=== PATIENT | female | born 1940 | race Caucasian/White ===

== ENCOUNTER 2017-04-10 11:53 | Observation (INO) ==
[2017-04-10 12:55] LABS: Basophils % 0.1 %; Eosinophils # 0.3 K/mcL (0.0-0.6); Eosinophils % 3.7 %; Hematocrit 34.2 % (35.3-44.9); Hemoglobin 10.5 g/dL (11.5-15.4); Immature Granulocytes % 0.4 % (0-4); Lymphocytes # 0.9 K/mcL (0.6-4.6); Lymphocytes % 12.2 %; Mean Corpuscular HGB Conc 30.7 g/dL (31.6-35.5); Mean Corpuscular Hemoglobin 29.2 pg (28.0-33.3); Mean Platelet Volume 9.2 fL (9.4-12.4); Monocytes # 0.7 K/mcL (0.0-1.3); Monocytes % 9.6 %; Neutrophils # 5.6 K/mcL (1.6-8.9); Platelet Count 363 K/mcL (140-400); Red Cell Distribution Width 14.5 % (11.5-14.5)
--- NOTE | 2017-04-10 13:06 | Emergency Department Note ---
Disposition Clinical Impression: Abdominal pain Qualifiers: Abdominal location: lower abdomen, unspecified Qualified Code(s): R10.30 - Lower abdominal pain, unspecified Nausea & vomiting Qualifiers: Vomiting type: unspecified Vomiting Intractability: intractable Qualified Code( s): R11.2 - Nausea with vomiting, unspecified Disposition: Admitted As Inpatient Condition: Good Referrals: NONE,PCP [Primary Care Provider] - [facility] [Outside] Forms: ED Satisfaction Letter, Work/School Release Time of Disposition: 14:19 General Adult HPI - General Chief complaint: ED Abdominal Pain Stated complaint: abdominal pain Time Seen by Provider: 04/10/17 11:56 Source: EMS Limitations: no limitations Nursing Notes Reviewed: Yes Vital Signs Reviewed: Yes - History of Present Illness HPI Narrative: Patient is a 76-year-old female that presents to emergency department with right flank and right lower quadrant pain. She states that this began yesterday morning around 4 AM. This issue at urgent care yesterday and they thought this could possibly be a kidney infection and was given tramadol and an antibiotic. This does not seem to provide any relief for her. She states that she began vomiting this morning. Patient states that her pain starts in the right flank and radiates to the right lower quadrant and groin. She describes as a sharp pain and rates as a 10 out of 10. She states that she is unable to get comfortable. Patient denies any previous history of kidney stone. Pain Scale: 10 - Related Data Allergies Allergy/AdvReac Type Severity Reaction Status Date / Time levofloxacin [From Levaquin] Allergy Difficulty Verified 04/10/17 13:36 Breathing morphine Allergy Difficulty Verified 04/10/17 13:36 Breathing Glqcodw-Vbi-Aha Reductase Allergy Chest Pain Verified 04/10/17 13:36 Inhibitor [Statins] All systems ED: reviewed and negative except as stated. () Respiratory: Reports: cough, dyspnea Gastrointestinal: Reports: abdominal pain, nausea, vomiting. Denies: diarrhea Genitourinary: Denies: urgency, dysuria, frequency Musculoskeletal: Reports: back pain Past Medical History - Past Medical History Medical history: Reports: COPD, GERD, hyperlipidemia Psychiatric history: Reports: no psych history - Social History Smoking Status: Current every day smoker Smokeless Tobacco Status: No Alcohol use: Reports: occasionally Drug use: Reports: none Physical Exam - General Limitations: no limitations General appearance: alert, in no apparent distress - Head Head exam: atraumatic, normocephalic - Eye Eye exam: Present: normal appearance, EOMI - Neck Neck exam: Present: normal inspection, full ROM, trachea midline - Respiratory Respiratory exam: Present: wheezes (Wheezes bilaterally) - Cardiovascular Cardiovascular exam: Present: regular rate, normal rhythm, normal heart sounds, +S1, +S2 - Abdominal Exam Abdominal exam: Present: soft, tenderness, normal bowel sounds. Absent: rebound Abdominal tenderness: Present: RLQ, suprapubic, moderate - Back Exam Back exam: Present: normal inspection, full ROM, CVA tenderness (R). Absent: CVA tenderness (L) - Neurological Exam Neurological exam: Present: alert, oriented X3 - Psychiatric Psychiatric exam: Present: normal affect, normal mood - Skin Skin exam: Present: warm, dry, intact Course Vital Signs Temperature 97.8 F 04/10/17 11:54 Pulse Rate 86 04/10/17 11:54 Respiratory Rate 20 04/10/17 11:54 Blood Pressure 207/90 04/10/17 11:54 O2 Sat by Pulse Oximetry 97 04/10/17 11:54 Temperature 97.8 F 04/10/17 11:54 Pulse Rate 86 04/10/17 11:54 Respiratory Rate 20 04/10/17 11:54 Blood Pressure 207/90 04/10/17 11:54 O2 Sat by Pulse Oximetry 97 04/10/17 11:54 Oxygen Delivery Oxygen Delivery Nasal Cannula Medical Decision Making - [facility] Narrative Medical decision making narrative: Due to the patient having right flank and abdominal pain we will order CBC, BMP , lipase, hepatic panel, urinalysis and we will order a CT of the abdomen and pelvis. CT scan of the abdomen and pelvis was negative for any acute intra- abdominal pathology. Urinalysis shows small amount of leuk esterase. Patient was slightly anemic at 10.5. There is no elevation in the patient's white count. Patient states that she has had a previous appendectomy and hysterectomy with bilateral opherectomy. There is no indication to do a pelvic ultrasound at this time due to the patient not having ovaries or uterus. Patient will be given Zofran and ibuprofen for pain. Patient will be given some water for by mouth challenge. The patient did not tolerate by mouth and was not able to take anything by mouth. The patient will need an IV placed and IV antiemetics. The patient will need to be admitted to the hospital for further evaluation and management. [facility] the hospital was negative except for the patient to their service. The patient given to the hospital this time. - Medical Records Medical records reviewed: Yes I reviewed the patient's medical records. - Lab Data Lab results reviewed: Yes I reviewed the patient's lab results. Result diagrams: 04/10/17 12:46 04/10/17 12:46 Lab Results 04/10/17 04/10/17 04/10/17 Range/Units 12:46 12:46 12:46 WBC 7.6 (4.3-11.1) K/mcL RBC 3.60 L (3.82-4.97) M/mcL Hgb 10.5 L (11.5-15.4) g/dL Hct 34.2 L (35.3-44.9) % MCV 95.0 (83.0-100.0) fL MCH 29.2 (28.0-33.3) pg MCHC 30.7 L (31.6-35.5) g/dL RDW 14.5 (11.5-14.5) % Plt Count 363 (140-400) K/mcL MPV 9.2 L (9.4-12.4) fL Immature Gran % 0.4 (0-4) % Seg Neutrophils % 74.0 % Lymphocytes % 12.2 % Monocytes % 9.6 % Eosinophils % 3.7 % Basophils % 0.1 % Neutrophils # 5.6 (1.6-8.9) K/mcL Lymphocytes # 0.9 (0.6-4.6) K/mcL Monocytes # 0.7 (0.0-1.3) K/mcL Eosinophils # 0.3 (0.0-0.6) K/mcL Basophils # 0.0 (0.0-0.2) K/mcL Sodium 136 (136-145) mEq/L Potassium 4.2 (3.5-5.1) mEq/L Chloride 102 (98-107) mEq/L Carbon Dioxide 29 (23-29) mEq/L BUN 11 (8-23) mg/dL Creatinine 0.99 (0.60-1.20) mg/dL Est GFR ( Amer) > 60 (> 60) Est GFR (Non-Af Amer) 54 L (> 60) BUN/Creatinine Ratio 11 (6-26) Glucose 105 (70-105) mg/dL Calculated Osmolality 282 (280-300) Lactic Acid 0.5 (0.5-2.2) mmol/L Calcium 8.6 (8.6-10.3) mg/dL Total Bilirubin 0.2 L (0.3-1.0) mg/dL Direct Bilirubin 0.0 (0.0-0.2) mg/dL Indirect Bilirubin 0.2 (0.0-1.2) mg/dL AST 12 L (13-39) Units/L ALT 9 (7-52) Units/L Alkaline Phosphatase 66 (34-104) Units/L Serum Total Protein 5.9 L (6.4-8.9) g/dL Albumin 3.4 L (3.5-5.7) g/dL Globulin 2.5 (2.4-3.5) g/dL Albumin/Globulin Ratio 1.4 (1.1-2.2) Lipase 13 (11-82) Units/L Urine Color (Yellow) Urine Clarity (Clear) Urine pH (5.0-8.0) pH Units Ur Specific [place] (1.010-1.025) Urine Protein (Neg-Trace) mg/dL Urine Glucose (UA) (Normal) mg/dL Urine Ketones (Negative) mg/dL Urine Blood (Negative) Urine Nitrite (Negative) Urine Bilirubin (Negative) Urine Urobilinogen (Normal) mg/dL Ur Leukocyte Esterase (Negative) Urine Microscopic RBC (0-3) per hpf Urine Microscopic WBC (0-3) per hpf Ur Squamous Epith Cells (None-Few) per lpf Urine Bacteria (None-Few) per hpf Hyaline Casts (None-Few) per lpf Ur Culture Indicated? (NO) 04/10/17 Range/Units 13:10 WBC (4.3-11.1) K/mcL RBC (3.82-4.97) M/mcL Hgb (11.5-15.4) g/dL Hct (35.3-44.9) % MCV (83.0-100.0) fL MCH (28.0-33.3) pg MCHC (31.6-35.5) g/dL RDW (11.5-14.5) % Plt Count (140-400) K/mcL MPV (9.4-12.4) fL Immature Gran % (0-4) % Seg Neutrophils % % Lymphocytes % % Monocytes % % Eosinophils % % Basophils % % Neutrophils # (1.6-8.9) K/mcL Lymphocytes # (0.6-4.6) K/mcL Monocytes # (0.0-1.3) K/mcL Eosinophils # (0.0-0.6) K/mcL Basophils # (0.0-0.2) K/mcL Sodium (136-145) mEq/L Potassium (3.5-5.1) mEq/L Chloride (98-107) mEq/L Carbon Dioxide (23-29) mEq/L BUN (8-23) mg/dL Creatinine (0.60-1.20) mg/dL Est GFR ( Amer) (> 60) Est GFR (Non-Af Amer) (> 60) BUN/Creatinine Ratio (6-26) Glucose (70-105) mg/dL Calculated Osmolality (280-300) Lactic Acid (0.5-2.2) mmol/L Calcium (8.6-10.3) mg/dL Total Bilirubin (0.3-1.0) mg/dL Direct Bilirubin (0.0-0.2) mg/dL Indirect Bilirubin (0.0-1.2) mg/dL AST (13-39) Units/L ALT (7-52) Units/L Alkaline Phosphatase (34-104) Units/L Serum Total Protein (6.4-8.9) g/dL Albumin (3.5-5.7) g/dL Globulin (2.4-3.5) g/dL Albumin/Globulin Ratio (1.1-2.2) Lipase (11-82) Units/L Urine Color Yellow (Yellow) Urine Clarity Clear (Clear) Urine pH 6.5 (5.0-8.0) pH Units Ur Specific [place] 1.021 (1.010-1.025) Urine Protein Negative (Neg-Trace) mg/dL Urine Glucose (UA) Normal (Normal) mg/dL Urine Ketones Negative (Negative) mg/dL Urine Blood Negative (Negative) Urine Nitrite Negative (Negative) Urine Bilirubin Negative (Negative) Urine Urobilinogen Normal (Normal) mg/dL Ur Leukocyte Esterase Small H (Negative) Urine Microscopic RBC 0-3 (0-3) per hpf Urine Microscopic WBC 0-3 (0-3) per hpf Ur Squamous Epith Cells Many H (None-Few) per lpf Urine Bacteria None Seen (None-Few) per hpf Hyaline Casts None Seen (None-Few) per lpf Ur Culture Indicated? NO (NO) - Radiology Data Radiology results reviewed: Yes I reviewed the patient's radiology results. Abdomen/Pelvis CT 04/10/17 13:02 IMPRESSION: 1. No acute intra-abdominal process identified. 2. Moderate atherosclerotic disease. 3. Diverticulosis without evidence for diverticulitis. D/ / Jorge Luis Broussard MD / Jorge Luis Broussard MD Interpreting Provider: Jorge Luis Broussard MD
[2017-04-10 13:10] LABS: Alanine Aminotransferase 9 Units/L (7-52); Albumin 3.4 g/dL (3.5-5.7); Albumin/Globulin Ratio 1.4 (1.1-2.2); Alkaline Phosphatase 66 Units/L (34-104); Aspartate Amino Transferase 12 Units/L (13-39); BUN/Creatinine Ratio 11 (6-26); Bilirubin,Indirect 0.2 mg/dL (0.0-1.2); Bilirubin,Total 0.2 mg/dL (0.3-1.0); Blood Urea Nitrogen 11 mg/dL (8-23); Calcium 8.6 mg/dL (8.6-10.3); Carbon Dioxide 29 mEq/L (23-29); Chloride 102 mEq/L (98-107); Globulin 2.5 g/dL (2.4-3.5); Glucose 105 mg/dL (70-105); Lipase 13 Units/L (11-82); Osmolality,Calculated 282 (280-300); Potassium 4.2 mEq/L (3.5-5.1); Sodium 136 mEq/L (136-145); Total Protein 5.9 g/dL (6.4-8.9); eGFR For African Americans > 60 (> 60); eGFR For Non-African Americans 54 (> 60)
[2017-04-10 13:23] LABS: Bilirubin,Urine Negative (Negative); Blood,Urine Negative (Negative); Clarity,Urine Clear (Clear); Color,Urine Yellow (Yellow); Glucose,Urine (UA) Normal (Normal); Ketones,Urine Negative (Negative); Leukocyte Esterase,Urine Small (Negative); Nitrite,Urine Negative (Negative); PH,Urine 6.5 pH Units (5.0-8.0); Protein,Urine Negative (Neg-Trace); Specific Gravity,Urine 1.021 (1.010-1.025); Urobilinogen,Urine Normal (Normal)
[2017-04-10 13:25] LABS: Bacteria,Urine None Seen per hpf (None-Few); Hyaline Casts,Urine None Seen per lpf (None-Few); RBC,Urine 0-3 per hpf (0-3); Squamous Epithelial Cell,Urine Many per lpf (None-Few); WBC,Urine 0-3 per hpf (0-3)
[2017-04-10] MEDS ORDERED: Albuterol 2.5 MG/3 ML NEBULIZER IH ONE (13:41)
[2017-04-10] MEDS ORDERED: Ibuprofen 800 MG TABLET PO ONE (13:57)
[2017-04-10] MEDS ORDERED: Ondansetron ODT 4 MG TAB.RAPDIS SL ONE (13:57)
--- NOTE | 2017-04-10 14:04 | Emergency Department Note ---
START Narrative - START START: I examined this patient and my medical decision-making was reviewed with the Resident Physician. I agree with the documented findings, disposition and treatment plan as described except to the extent set forth below. 76 yo F here for right sided abd pain and right flank pain. started a few days ago. pt having pain to right inguinal region we did a bedside US and it appeared the right kidney was ok and the aorta was normal in size labs neg UA neg no signs of infection; no blood no wbc count neg lactate--no signs of ischemic process CT neg for any acute process. prior appy and prior ovary removal. limited pathology option in RLQ region and with neg labs and CT...i feel pt can be dc'd home with close observation.
[2017-04-10] MEDS ORDERED: Ondansetron 4 MG/2 ML VIAL IVP ONE (14:14)
[2017-04-10] MEDS ORDERED: 0.9 % Sodium Chloride 1,000 ML IVC ONE (14:29)
[2017-04-10] MEDS ORDERED: Naloxone 0.4 MG/ML INJ IVP PRN (16:01)
--- NOTE | 2017-04-10 16:13 | Internal Med History&Physical ---
Date of Encounter: 04/11/17 Time of Encounter: 16:35 Assessment and Plan (1) Abdominal pain Current visit: Yes Status: Acute ASSESSMENT: - Abdominal pain DD *Gastroenteritis *Gastritis *PUD *Pancreatitis *Cholecystitis *Diverticulitis *UTI PLAN: - NPO apart from meds - IVF, NS at 125 cc/hr - We will start patient on proton pump inhibitor - Pain control - Liver/gallbladder U/S - CBCD, CMP in AM Qualifiers: Abdominal location: lower abdomen, unspecified Qualified Code(s): R10.30 - Lower abdominal pain, unspecified (2) Nausea & vomiting Current visit: Yes Status: Acute Nothing by mouth for now continue antiemetic Qualifiers: Vomiting type: unspecified Vomiting Intractability: intractable Qualified Code(s): R11.2 - Nausea with vomiting, unspecified (3) Hyperlipidemia Current visit: Yes Status: Acute We will obtain fasting lipid profile in a.m., continue statin (4) GERD (gastroesophageal reflux disease) Current visit: Yes Status: Acute We will start the patient on proton pump inhibitor 40 mg twice a day (5) Anemia Current visit: Yes Status: Acute We will continue to monitor H and H, no evidence of GI bleeding, obtain iron studies, transfuse for hemoglobin less than 7 (6) DVT prophylaxis Current visit: Yes Status: Acute There is no evidence of GI bleeding, we will start the patient on enoxaparin as well as SCD Internal Medicine - H&P: HPI History of present illness: Patient is a 76-year-old female that presents to emergency department with right flank and right lower quadrant pain. She states that this began yesterday morning around 4 AM. This issue at urgent care yesterday and they thought this could possibly be a kidney infection and was given tramadol and an antibiotic. This does not seem to provide any relief for her. She states that she began vomiting this morning. Patient states that her pain starts in the right flank and radiates to the right lower quadrant and groin. She describes as a sharp pain and rates as a 10 out of 10. She states that she is unable to get comfortable. Patient denies any previous history of kidney stone. Past Med Surg Social Fam HX - Past Medical History Medical history: COPD, GERD, hyperlipidemia Psychiatric history: no psych history - Past Surgical History Surgical History: appendectomy - Social History Smoking Status: Current every day smoker Smokeless Tobacco Status: No Alcohol use: none Drug use: none - Family History Mother Living Status: Hx Family Cardiac Disorders: Yes Internal Medicine - H&P: Meds Albuterol Neb [Proventil Neb] 2.5 mg IH Q4HR 04/10/17 [History] Albuterol Sulfate [Ventolin Hfa] 2 puff IH Q4H PRN 04/10/17 [History] Azithromycin [Azithromycin] 250 mg PO MOWEFR 04/10/17 [History] Budesonide/Formoterol 160/4.5 [Symbicort 160/4.5] 2 puff IH BID 04/10/17 [ History] Omeprazole [PriLOSEC] 20 mg PO DAILY 04/10/17 [History] Sulfamethoxazole/Trimeth DS [Bactrim Ds] 1 tab PO BID 04/10/17 [History] Tiotropium [place] [Spiriva Respimat] 2 puff IH DAILY 04/10/17 [History] Tramadol HCl [Ultram] 50 mg PO TID PRN 04/10/17 [History] 3 Allergy/AdvReac Type Severity Reaction Status Date / Time levofloxacin [From Levaquin] Allergy Difficulty Verified 04/10/17 13:36 Breathing morphine Allergy Difficulty Verified 04/10/17 13:36 Breathing Qctxdrt-Kfr-Fla Reductase Allergy Chest Pain Verified 04/10/17 13:36 Inhibitor [Statins] All Systems PM: A 10-system review of systems was performed and is negative for pertinent findings except as documented above in the HPI. - Constitutional Constitutional: no chills, no fever(s), no night sweats - EENT Eyes: no change in vision, no discharge, no pain, no photophobia - Cardiovascular Cardiovascular ROS IM: no chest pain, no diaphoresis, no dyspnea, no lightheadedness, no palpitations, no syncope - Gastrointestinal Gastrointestinal: abdominal pain, nausea, vomiting, no diarrhea, no hematemesis , no hematochezia, no melena - Genitourinary Genitourinary: no change in urinary stream, no dysuria, no flank pain, no hematuria - Neurological Neurological ROS: no confusion, no convulsions, no focal weakness, no numbness, no tingling, no tremor(s) - Constitutional Vitals: Temp Pulse Resp BP Pulse Ox 97.6 F 86 16 146/55 93 12/24/17 15:38 04/10/17 15:38 04/10/17 15:38 04/10/17 15:38 04/10/17 15:38 General appearance: Present: A&O X 3 - Head Head exam: Present: atraumatic, normocephalic - Neck Neck exam general surgery: Present: supple, trachea midline. Absent: lymphadenopathy - Cardiovascular Cardiovascular exam: Present: RRR, +S1, +S2. Absent: diastolic murmur, gallop, rubs, systolic murmur - GI/Abdominal GI/Abdominal exam: Present: normal bowel sounds, soft, tenderness, no peritoneal signs. Absent: distended - Extremities Exam Extremities exam: Present: warm, radial pulses palpable and symmetrical. Absent : calf tenderness, cyanotic, pedal edema - Neurological Exam Neurological exam: Present: CN II-XII intact, oriented X3, no focal deficits. Absent: pronater drift, facial droop, speech deficit Internal Med - H&P Results - Labs CBC & Chem 7: 04/11/17 04:22 04/11/17 04:22
[2017-04-10] MEDS: Pantoprazole 40 MG VIAL IVP SCH (17:51)
[2017-04-10] MEDS: 0.9 % Sodium Chloride 1,000 ML IVC SCH (17:51)
[2017-04-10] MEDS: *HR* HYDROmorphone (PF) 1 MG/ML SYRINGE IVP PRN (17:51)
[2017-04-10 18:43] LABS: Bilirubin,Urine Negative (Negative); Blood,Urine Negative (Negative); Clarity,Urine Clear (Clear); Color,Urine Yellow (Yellow); Glucose,Urine (UA) Normal (Normal); Ketones,Urine Negative (Negative); Leukocyte Esterase,Urine Negative (Negative); Nitrite,Urine Negative (Negative); PH,Urine 6.5 pH Units (5.0-8.0); Protein,Urine Negative (Neg-Trace); Specific Gravity,Urine 1.021 (1.010-1.025); Urobilinogen,Urine Normal (Normal)
[2017-04-11] MEDS: 0.9 % Sodium Chloride 1,000 ML IVC SCH (02:50)
[2017-04-11] MEDS: *HR* HYDROmorphone (PF) 1 MG/ML SYRINGE IVP PRN ×2 (02:56→15:55)
[2017-04-11] MEDS: Ondansetron 4 MG/2 ML VIAL IVP PRN ×2 (02:57→15:57)
[2017-04-11] MEDS: Albuterol 2.5 MG/3 ML NEBULIZER IH PRN ×3 (03:39→11:51)
[2017-04-11 05:08] LABS: Basophils % 0.2 %; Eosinophils # 0.2 K/mcL (0.0-0.6); Eosinophils % 2.9 %; Hematocrit 32.8 % (35.3-44.9); Hemoglobin 9.9 g/dL (11.5-15.4); Immature Granulocytes % 0.2 % (0-4); Lymphocytes # 0.9 K/mcL (0.6-4.6); Lymphocytes % 11.4 %; Mean Corpuscular HGB Conc 30.2 g/dL (31.6-35.5); Mean Corpuscular Hemoglobin 28.9 pg (28.0-33.3); Mean Corpuscular Volume 95.9 fL (83.0-100.0); Mean Platelet Volume 9.6 fL (9.4-12.4); Monocytes # 0.7 K/mcL (0.0-1.3); Monocytes % 8.3 %; Neutrophils # 6.4 K/mcL (1.6-8.9); Platelet Count 335 K/mcL (140-400); Red Blood Count 3.42 M/mcL (3.82-4.97); Red Cell Distribution Width 14.3 % (11.5-14.5)
[2017-04-11 05:22] LABS: Alanine Aminotransferase 8 Units/L (7-52); Albumin 3.2 g/dL (3.5-5.7); Albumin/Globulin Ratio 1.5 (1.1-2.2); Alkaline Phosphatase 64 Units/L (34-104); Aspartate Amino Transferase 11 Units/L (13-39); BUN/Creatinine Ratio 8 (6-26); Bilirubin,Total 0.2 mg/dL (0.3-1.0); Blood Urea Nitrogen 7 mg/dL (8-23); Calcium 8.2 mg/dL (8.6-10.3); Carbon Dioxide 28 mEq/L (23-29); Chloride 103 mEq/L (98-107); Chol/HDL Ratio 2.5 (0-4.9); Cholesterol 224 mg/dL (< 200); Globulin 2.2 g/dL (2.4-3.5); Glucose 70 mg/dL (70-105); HDL Cholesterol 90 mg/dL (40-59); LDL Cholesterol,Calculated 117 mg/dL (0-99); Magnesium 1.7 mg/dL (1.6-2.6); Osmolality,Calculated 276 (280-300); Phosphorous 3.5 mg/dL (2.7-4.5); Potassium 4.6 mEq/L (3.5-5.1); Sodium 135 mEq/L (136-145); Total Protein 5.4 g/dL (6.4-8.9); Triglycerides 86 mg/dL (< 150); eGFR For African Americans > 60 (> 60); eGFR For Non-African Americans 60 (> 60)
[2017-04-11 05:23] LABS: INR 0.9; Prothrombin Time 10.1 Seconds (9.4-12.1)
[2017-04-11] MEDS ORDERED: Dextrose Gel 15 GM PO PRN ×2 (05:25)
[2017-04-11] MEDS ORDERED: *HR* Dextrose 50 % in Water (Syg) 50 ML SYRINGE IVP PRN (05:25)
[2017-04-11] MEDS ORDERED: D5% in Water 1,000 ML IVC PRN (05:25)
[2017-04-11 05:26] LABS: Activated Partial Thrombo Time 26.5 Seconds (26.0-36.0)
[2017-04-11] MEDS: *HR* Enoxaparin 40 MG/0.4 ML SYRINGE SQ SCH (05:47)
[2017-04-11] MEDS: Pantoprazole 40 MG VIAL IVP SCH ×2 (05:47→18:24)
[2017-04-11] MEDS: Budesonide/Formoterol 160/4.5 MDI IH SCH ×2 (07:34→22:32)
[2017-04-11] MEDS: Tiotropium 18 MCG inhalation IH SCH (07:34)
[2017-04-11 08:18] LABS: % Iron Saturation 14 % (15-50); Iron 51 mcg/dL (50-170); Transferrin 254 mg/dL (203-362)
[2017-04-11] MEDS ORDERED: 0.9 % Sodium Chloride 1,000 ML IVC SCH (08:30)
--- NOTE | 2017-04-11 10:10 | Internal Med Progress Note ---
Date of Encounter: 04/11/17 Time of Encounter: 09:00 - Assessment and plan (1) Abdominal pain Current Visit: Yes Status: Acute Assessment and plan: Continue symptomatically treatment for now. Continue with IV PPI. Continue normal saline. Advanced diet as tolerated. She has a right upper quadrant ultrasound pending. Not exactly sure if this is going to be done today given the holidays. Today the plan is to continue with pain control and possibly see with the right upper quadrant ultrasound shows either today or tomorrow. CT abdomen and pelvis with nothing acute. Qualifiers: Abdominal location: right upper quadrant Qualified Code(s): R10.11 - Right upper quadrant pain (2) GERD (gastroesophageal reflux disease) Current Visit: Yes Status: Acute Assessment and plan: Continue IV PPI for now. On oral omeprazole at home. Qualifiers: Esophagitis presence: without esophagitis Qualified Code(s): K21.9 - Gastro -esophageal reflux disease without esophagitis (3) Anemia Current Visit: Yes Status: Acute Assessment and plan: Hemoglobin is 10.5 today. There was 9.9 yesterday. I do not have any old labs to compare to. We will continue to monitor. Iron panel is pending. No signs of bleeding. Qualifiers: Anemia type: unspecified type Qualified Code(s): D64.9 - Anemia, unspecified (4) DVT prophylaxis Current Visit: Yes Status: Acute Assessment and plan: Lovenox - Subjective Interval history: Patient was admitted with abdominal pain. Apparently she complained of right upper quadrant pain as well as right flank pain. CT abdomen and pelvis in the ED was mostly unremarkable except for some diverticulosis. She says her pain in the abdomen is better now. She says the pain in the abdomen is actually on the left side now more than it is on the right side however she still has some right upper quadrant pain. She has a right upper quadrant ultrasound pending. She has been afebrile. - Constitutional Vitals: Temp Pulse Resp BP Pulse Ox 98.2 F 88 16 146/68 95 04/11/17 06:47 04/11/17 06:47 04/11/17 07:44 04/11/17 06:47 04/11/17 07:44 General appearance: Present: A&O X 3 Exam: GEN: NAD CVS: RRR. S1, S2, No m/r/g RESP: CTAB ABD: Soft, right upper quadrant tenderness as well as left upper quadrant tenderness. Left flank tenderness., ND, +BS EXT: No edema. 2+ DP. No rashes NEURO: Nonfocal Internal Medicine: Result - Labs CBC & Chem 7: 04/11/17 04:22 04/11/17 04:22 Labs: Short CBC 04/11/17 Range/Units 04:22 WBC 8.3 (4.3-11.1) K/mcL Hgb 9.9 L (11.5-15.4) g/dL Hct 32.8 L (35.3-44.9) % Plt Count 335 (140-400) K/mcL Neutrophils # 6.4 (1.6-8.9) K/mcL BMP 04/11/17 04:22 Sodium 135 L Potassium 4.6 Chloride 103 Carbon Dioxide 28 BUN 7 L Creatinine 0.91 Glucose 70 Calcium 8.2 L Cardiac Enzymes 04/10/17 04/11/17 Range/Units 21:52 04:22 Troponin I < 0.03 < 0.03 (< 0.04) ng/mL Liver Function 04/11/17 Range/Units 04:22 Total Bilirubin 0.2 L (0.3-1.0) mg/dL AST 11 L (13-39) Units/L ALT 8 (7-52) Units/L Alkaline Phosphatase 64 (34-104) Units/L Albumin 3.2 L (3.5-5.7) g/dL Urine 04/10/17 Range/Units 17:00 Urine Color Yellow (Yellow) Urine Clarity Clear (Clear) Urine pH 6.5 (5.0-8.0) pH Units Ur Specific [place] 1.021 (1.010-1.025) Urine Protein Negative (Neg-Trace) mg/dL Urine Glucose (UA) Normal (Normal) mg/dL - ABG Interpretation ABG results: PT/INR, D-dimer PT 10.1 Seconds (9.4-12.1) 04/11/17 04:22 Consult Discharge Plan - Plan Referrals: NONE,PCP [Primary Care Provider] -
[2017-04-11] MEDS: *HR* HYDROcodone/Acet 5/325 mg TABLET PO PRN (22:58)
[2017-04-12 05:07] LABS: Basophils % 0.2 %; Eosinophils # 0.1 K/mcL (0.0-0.6); Eosinophils % 2.4 %; Hematocrit 28.8 % (35.3-44.9); Hemoglobin 8.9 g/dL (11.5-15.4); Immature Granulocytes % 0.3 % (0-4); Lymphocytes # 1.1 K/mcL (0.6-4.6); Lymphocytes % 19.2 %; Mean Corpuscular HGB Conc 30.9 g/dL (31.6-35.5); Mean Corpuscular Hemoglobin 29.2 pg (28.0-33.3); Mean Corpuscular Volume 94.4 fL (83.0-100.0); Mean Platelet Volume 9.4 fL (9.4-12.4); Monocytes # 0.6 K/mcL (0.0-1.3); Monocytes % 10.7 %; Neutrophils # 3.9 K/mcL (1.6-8.9); Platelet Count 290 K/mcL (140-400); Red Blood Count 3.05 M/mcL (3.82-4.97); Red Cell Distribution Width 14.3 % (11.5-14.5); Segmented Neutrophils % 67.2 %
[2017-04-12 05:22] LABS: BUN/Creatinine Ratio 6 (6-26); Blood Urea Nitrogen 5 mg/dL (8-23); Calcium 8.4 mg/dL (8.6-10.3); Carbon Dioxide 28 mEq/L (23-29); Chloride 105 mEq/L (98-107); Glucose 94 mg/dL (70-105); Osmolality,Calculated 279 (280-300); Potassium 4.2 mEq/L (3.5-5.1); Sodium 136 mEq/L (136-145); eGFR For African Americans > 60 (> 60); eGFR For Non-African Americans > 60 (> 60)
[2017-04-12] MEDS: Pantoprazole 40 MG VIAL IVP SCH ×2 (05:22→18:22)
[2017-04-12] MEDS: *HR* Enoxaparin 40 MG/0.4 ML SYRINGE SQ SCH (05:24)
[2017-04-12] MEDS: Budesonide/Formoterol 160/4.5 MDI IH SCH ×2 (07:31→20:04)
[2017-04-12] MEDS: *HR* HYDROcodone/Acet 5/325 mg TABLET PO PRN (08:50)
--- NOTE | 2017-04-12 09:44 | Internal Med Progress Note ---
Date of Encounter: 04/12/17 Time of Encounter: 09:40 - Assessment and plan (1) Abdominal pain Current Visit: Yes Status: Acute Assessment and plan: Continue symptomatically treatment for now. Continue with IV PPI. Stop IV fluids right upper quadrant ultrasound is pending for this morning. I have suspicion that it has Come Back Normal. We Will Follow-Up on That. Etiology is unclear for me. Lipase is normal. Liver function test normal. CT abdomen and pelvis with nothing acute. She is hemodynamically stable. Her hemoglobin did drop a little bit but she has been receiving IV fluids and her white blood cell count as well as platelets also dropped. It is likely dilutional. Qualifiers: Abdominal location: right upper quadrant Qualified Code(s): R10.11 - Right upper quadrant pain (2) Other specified anemias Current Visit: Yes Status: Acute Assessment and plan: Hemoglobin is 8.9 today. It was 9.9 yesterday. 10.5 on day of admission. There is no signs of bleeding. I believe most of this is dilutional. She is receiving IV fluids and her platelets as well as her white count did drop as well. We will check fecal occult blood testing. (3) GERD (gastroesophageal reflux disease) Current Visit: Yes Status: Acute Assessment and plan: Continue IV PPI for now. On oral omeprazole at home. Qualifiers: Esophagitis presence: without esophagitis Qualified Code(s): K21.9 - Gastro -esophageal reflux disease without esophagitis (4) DVT prophylaxis Current Visit: Yes Status: Acute Assessment and plan: Stopped Lovenox and place SCDs. - Subjective Interval history: Patient continues to have abdominal pain. The pain keeps on jumping from one spot to another. Today she says it is in the right lower quadrant. Yesterday the pain was in the left flank. The day of admission she complained of right upper quadrant pain today admit her. CT abdomen and pelvis in the ED was mostly unremarkable except for some diverticulosis. She says her pain in the abdomen is better now. Pain is well controlled with narcotics.. She has been afebrile. - Constitutional Vitals: Temp Pulse Resp BP Pulse Ox 98.3 F 74 16 121/58 98 04/12/17 06:43 04/12/17 06:43 04/12/17 07:30 04/12/17 06:43 04/12/17 07:30 General appearance: Present: A&O X 3 Exam: GEN: NAD CVS: RRR. S1, S2, No m/r/g RESP: CTAB ABD: Soft, right lower quadrant tenderness. ND, +BS EXT: No edema. 2+ DP. No rashes NEURO: Nonfocal Internal Medicine: Result - Labs CBC & Chem 7: 04/12/17 04:33 04/12/17 04:33 Labs: Short CBC 04/12/17 Range/Units 04:33 WBC 5.8 (4.3-11.1) K/mcL Hgb 8.9 L (11.5-15.4) g/dL Hct 28.8 L (35.3-44.9) % Plt Count 290 (140-400) K/mcL Neutrophils # 3.9 (1.6-8.9) K/mcL BMP 04/12/17 04:33 Sodium 136 Potassium 4.2 Chloride 105 Carbon Dioxide 28 BUN 5 L Creatinine 0.89 Glucose 94 Calcium 8.4 L - ABG Interpretation ABG results: PT/INR, D-dimer PT 10.1 Seconds (9.4-12.1) 04/11/17 04:22 Consult Discharge Plan - Plan Referrals: NONE,PCP [Primary Care Provider] -
[2017-04-12] MEDS: Tiotropium 18 MCG inhalation IH SCH (10:46)
[2017-04-12] MEDS ORDERED: *HR* HYDROcodone/Acet 5/325 mg TABLET PO PRN (11:02)
--- NOTE | 2017-04-12 16:45 | Electrocardiograph Report ---
[place] [id number] Test Date: 2017-04-10 Pat Name: Mary Carmen Trejo Department: 115 Room: 3A42 Gender: F [employer]: : [id number] Requested By: Divina Kuo Order Number: [id number] Reading MD: Carlos Florence MD Measurements Intervals [place] Rate: 81 P: 76 NC: 127 QRS: 94 QRSD: 84 T: 44 QT: 361 QTc: 398 Interpretive Statements SINUS RHYTHM BORDERLINE RIGHT AXIS DEVIATION Electronically Signed On 04-12-2017 16:43:42 EST by Carlos Floernce MD
[2017-04-12] MEDS: Albuterol 2.5 MG/3 ML NEBULIZER IH PRN (20:09)
[2017-04-13 04:20] LABS: Basophils % 0.1 %; Eosinophils # 0.2 K/mcL (0.0-0.6); Eosinophils % 3.1 %; Hematocrit 28.7 % (35.3-44.9); Hemoglobin 8.9 g/dL (11.5-15.4); Immature Granulocytes % 0.3 % (0-4); Lymphocytes # 1.1 K/mcL (0.6-4.6); Mean Corpuscular Hemoglobin 28.8 pg (28.0-33.3); Mean Corpuscular Volume 92.9 fL (83.0-100.0); Mean Platelet Volume 9.5 fL (9.4-12.4); Monocytes # 0.7 K/mcL (0.0-1.3); Monocytes % 9.9 %; Platelet Count 294 K/mcL (140-400); Red Blood Count 3.09 M/mcL (3.82-4.97); Red Cell Distribution Width 14.3 % (11.5-14.5); Segmented Neutrophils % 70.6 %
[2017-04-13 04:30] LABS: BUN/Creatinine Ratio 9 (6-26); Blood Urea Nitrogen 8 mg/dL (8-23); Calcium 8.5 mg/dL (8.6-10.3); Carbon Dioxide 31 mEq/L (23-29); Chloride 102 mEq/L (98-107); Glucose 111 mg/dL (70-105); Osmolality,Calculated 281 (280-300); Potassium 4.3 mEq/L (3.5-5.1); Sodium 136 mEq/L (136-145); eGFR For African Americans > 60 (> 60); eGFR For Non-African Americans > 60 (> 60)
[2017-04-13] MEDS: Budesonide/Formoterol 160/4.5 MDI IH SCH (07:54)
[2017-04-13] MEDS: Tiotropium 18 MCG inhalation IH SCH (07:56)
[2017-04-13 08:26] VITALS: BP 149/77
--- NOTE | 2017-04-13 08:46 | Discharge Summary ---
Date of Encounter: 04/13/17 Time of Encounter: 08:40 - Discharge Diagnosis (1) Abdominal pain Priority: Primary Status: Acute Qualifiers: Abdominal location: right upper quadrant Qualified Code(s): R10.11 - Right upper quadrant pain (2) Other specified anemias Priority: Primary Status: Acute (3) GERD (gastroesophageal reflux disease) Priority: Secondary Status: Acute Qualifiers: Esophagitis presence: without esophagitis Qualified Code(s): K21.9 - Gastro -esophageal reflux disease without esophagitis - Discharge Medications Home Medications: Albuterol Neb [Proventil Neb] 2.5 mg IH Q4HR 04/10/17 [History] Albuterol Sulfate [Ventolin Hfa] 2 puff IH Q4H PRN 04/10/17 [History] Budesonide/Formoterol 160/4.5 [Symbicort 160/4.5] 2 puff IH BID 04/10/17 [ History] Omeprazole [PriLOSEC] 20 mg PO DAILY 04/10/17 [History] Tiotropium [place] [Spiriva Respimat] 2 puff IH DAILY 04/10/17 [History] Tramadol HCl [Ultram] 50 mg PO TID PRN 04/10/17 [History] Allergies/Adverse Reactions: 3 Allergy/AdvReac Type Severity Reaction Status Date / Time levofloxacin [From Levaquin] Allergy Difficulty Verified 04/10/17 13:36 Breathing morphine Allergy Difficulty Verified 04/10/17 13:36 Breathing [id number] Reductase Allergy Chest Pain Verified 04/10/17 13:36 Inhibitor [Statins] Procedures/tests Complete & Pending: Procedures Performed prior 72 hours Category Date Time Status US gall bladder [US] Routine Exams 04/12/17 10:00 Completed Date of admission: 04/10/17 16:01 Primary care physician: PCP NONE - Patient Status Disposition: Home, Self-Care Condition: Fair Overall status at discharge: patient is back to baseline - Discharge Instructions Follow Up With: Lilia Mahmood CNP [Advanced Practice Nurse] - 04/19/17 1:00 pm - Diet and Activity Activity: increase activity as tolerated Diet: diabetic diet, regular diet Hospital course: Ms. Trejo is a 76 year old female who presented to emergency department with right flank and right lower quadrant pain. She stated that the pain has begun the day prior to admission. It was sudden pain. She was seen at an urgent care prior to her admission here and was treated for possible urinary tract infection given the pain. She had no urinary symptoms whatsoever however. In the emergency department patient underwent a CT abdomen and pelvis that showed no acute abdominal process. There was moderate atherosclerotic disease. There was diverticulosis without evidence of diverticulitis. She was admitted to the hospitalist service for intractable pain. She was started on IV fluids. She was kept nothing by mouth for a day and that her diet was advanced. I checked a right upper quadrant ultrasound which came back negative. The patient pain was at different spots on different days. On initial presentation she mentioned a right upper quadrant pain. On my evaluation the following day she mentioned left flank pain. The day after she mentioned right lower quadrant pain. I explained to patient that I do not have an etiology for her pain. She was stable for discharge as she was tolerating diet. She was not using much of her pain meds ordered and I did not give her a prescription for narcotics at discharge. I advised the patient to follow-up with her primary care physician and possibly have a referral to see GI as an outpatient. She was stable for discharge on 04/13/2017. - Time Spent with Patient Total time spent providing and/or coordinating discharge services: - Constitutional Vitals: Temp Pulse Resp BP Pulse Ox 98.5 F 77 16 149/77 98 04/13/17 07:11 04/13/17 07:11 04/13/17 07:54 04/13/17 07:11 04/13/17 07:54 General appearance: Present: A&O X 3 Exam: GEN: NAD CVS: RRR. S1, S2, No m/r/g RESP: CTAB ABD: Soft, NT, ND, +BS EXT: No edema. 2+ DP. No rashes NEURO: Nonfocal - VTE Documentation of Mechanical Device: Intermittent pneumatic compression device
== END 2017-04-13 10:28 | disposition home or self-care (01) ==
LOC: EMEROO 11:53 → 3ANU 11:53
PROVIDERS: ADMIT Internal Medicine Nephrology; ATTEND Internal Medicine